=== PATIENT | female | born 1965 | race Caucasian/White ===

== ENCOUNTER 2017-11-04 12:06 | Emergency (ER) | payer OTHER, SELFPAY ==
[2017-11-04 12:10] VITALS: BP 118/77; PULSE 88; RESP 20; TEMP 37; O2SAT 98
--- NOTE | 2017-11-04 12:46 | ED.RECABL ---
HPI - Recheck/Abnormal Lab/Rx <Geeta Gomez PA-C - Last Filed: 11/04/17 22:45> General Chief Complaint: Recheck/Abnormal Lab/Rx Stated Complaint: WITHDRAW SYMPTOMS FROM MEDICATION Time Seen by Provider: 11/04/17 12:46 Source: patient Mode of arrival: ambulatory Limitations: no limitations History of Present Illness HPI narrative: This 52-year-old female comes in today requesting medication refill. She states that she is starting to withdraw from Lyrica, with nausea and tight muscles all over. She takes this for fibromyalgia and multi joint osteoarthritis, and states that she took her last dose yesterday morning. She states that she and her are here from [place] for a few months, get their prescriptions filled at the [facility] [employer] there. She brought her bottle with her, has been trying to stretch out her prescription. It was filled 2 months ago and usually takes it 2-3 times daily. She states that it took 2 weeks for her to reach her primary college and career counselor in [place] prior to them leaving and then the prescription was not ready, and they were not able to have her fill locally. She will be here until November. She denies any new symptoms or complaints today. Related Data Previous Rx's Medication Instructions Recorded pregabalin [Lyrica] 150 mg PO Q8H #60 cap 11/04/17 Review of Systems <Geeta Gomez PA-C - Last Filed: 11/04/17 22:45> Review of Systems All systems reviewed & are unremarkable except as noted in HPI and below PFSH <Geeta Gomez PA-C - Last Filed: 11/04/17 22:45> Comment: No EtOH Exam <Geeta Gomez PA-C - Last Filed: 11/04/17 22:45> Narrative Exam Narrative: GENERAL APPEARANCE: Patient sitting comfortably, in no distress. LUNGS: Clear to auscultation bilaterally. HEART: Rate and rhythm regular without murmur, normal S1 and S2, no S3 or S4. MUSCULOSKELETAL: No clear joint effusion. Tender over the hand joints and metacarpals, mild tenderness over the elbows and shoulders. No tenderness over the ankles. EXTREMITIES: No cyanosis or edema Initial Vital Signs Initial Vital Signs: Vital Signs Temperature 98.6 F 11/04/17 12:10 Pulse Rate 88 11/04/17 12:10 Respiratory Rate 20 11/04/17 12:10 Blood Pressure 118/77 11/04/17 12:10 Pulse Oximetry 98 11/04/17 12:10 <Marshal Gibbons MD - Last Filed: 12/01/17 18:16> Initial Vital Signs Initial Vital Signs: Vital Signs Temperature 98.6 F 11/04/17 12:10 Pulse Rate 88 11/04/17 12:10 Respiratory Rate 20 11/04/17 12:10 Blood Pressure 118/77 11/04/17 12:10 Pulse Oximetry 98 11/04/17 12:10 Course <Geeta Gomez PA-C - Last Filed: 11/04/17 22:45> Vital Signs - 8 hr 11/04/17 12:10 Temperature 98.6 F Pulse Rate 88 Respiratory Rate 20 Blood Pressure 118/77 Pulse Oximetry 98 <Marshal Gibbons MD - Last Filed: 12/01/17 18:16> Vital Signs - 8 hr 11/04/17 12:10 Temperature 98.6 F Pulse Rate 88 Respiratory Rate 20 Blood Pressure 118/77 Pulse Oximetry 98 Discharge Plan Departure Patient Disposition: Home Clinical Impression: Fibromyalgia, Osteoarthritis Discharge Date/Time: 11/04/17 13:21 Interventions: ED Discharge Assessment Last Done: 11/04/17 13:20 Instructions: Fibromyalgia Activity Restrictions/Additional Instructions: Since you just had your last dose of Lyrica yesterday, you can resume taking it as you usually do. Start with twice daily again for a few days and then you can take a 3rd dose if needed like you do at home. Please get in touch with your PCM and ask them to mail a prescription to you to fill here or send to [facility] for you so that you will have enough until you return home Prescriptions: New pregabalin [Lyrica] 150 mg capsule 150 mg PO Q8H Qty: 60 RF: 0 <Marshal Gibbons MD - Last Filed: 12/01/17 18:16> Cosign ED Attending Cosignature Attestation: I was present in the ER at the time of this patient's care. I was available for verbal consultation, or to see the patient directly if needed. I agree with the assessment, and care plan.
== END 2017-11-04 13:21 | disposition home or self-care (01) ==
PROVIDERS: Emergency Provider Internal Medicine
DX: M79.7 Fibromyalgia (principal)
CPT/HCPCS: 99282